=== PATIENT | female | born 1975 | race Caucasian/White ===

== ENCOUNTER 2017-04-02 13:50 | Emergency (ER) | payer MEDICARE, MEDICAID ==
[~2017-04-02] VITALS: Ht 162.6 cm; Wt 89.8 kg
[~2017-04-02 13:50] MED LIST: ABILIFY20 MG; AMOXICILLIN 50500 MG PO; ASPIR-LOW81 MG PO; BUSPAR 10MG TAB10 MG PO; CEFDINIR300 MG PO; CEFTIN250 MG PO; DILANTIN 100MG100 MG PO; IRON TABLETS325 MG PO; KETOROLAC 10MG10 MG PO; MACROBID 100MG100 M1 PO; MACROBID 100MG100 MG PO; MIRALAX17 GM/DOSE PO; MOTRIN 400MG.400 MG PO; Mobic7.5 MG PO; NIFEDIPINE 10MG10 MG OR; PAIN RELIEVER PO; PHENERGAN 25MG.25 M1 PO; PRENATAL PLUS1 TA1 PO; PROTONIX 40MG T40 MG PO; PYRIDIUM 200MG200 MG PO; TEGRETOL 100MG100 MG PO; TYLENOL ES500 M1 PO; VISTARIL25 MG PO; ZYVOX600 MG PO
[2017-04-02 14:17] LABS: HEMOGLOBIN 13.1 g/dL (12.2-16.2); LYMPH # 2.6 K/mm3 (0.7-4.5); LYMPH % 40.7 % (10-50.0)
[2017-04-02 14:28] LABS: URINE BILIRUBIN - DIPSTICK NEGATIVE (NEG); URINE BLOOD NEGATIVE (NEG)
[2017-04-02 14:31] LABS: URINE SQUAMOUS CELLS OCC #/hpf (0-5)
--- NOTE | 2017-04-02 14:53 | Emergency Room Report ---
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 N Clinical Suspician of Infection? N Mental Status: 1 - Regular (Normal Baseline) Sepsis Risk:Low Sepsis Risk Have you (or family members/close friends) recently traveled outside the [place]? N If Yes, where/when: Have you had exposure to infectious disease within the past month? TB? Other? Specify: Comment The patient complains of RIGHT flank pain for 8 days. She has had chills and a temperature of 100 degrees. No vomiting. She saw her primary care provider who did a urinalysis which she says was "clear" but they put her on an antibiotic" to try and clean out my kidneys". It has not helped the pain. She is taking Tylenol without relief. ALLERGIES Coded Allergies: bee pollen (Mild, 04/02/17) codeine (Mild, 04/02/17) honey (Mild, 04/02/17) hydromorphone (From DILAUDID) (Mild, 04/02/17) tetracycline (Mild, 04/02/17) Home Medications Reported Medications Buspirone Hcl (Buspar 10MG) 10 MG PO DAILY Carbamazepine (Tegretol 100MG Tablet) 100 MG PO BID Aspirin (Aspir-Low) 81 MG PO DAILY KETOROLAC TROMETHAMINE (Ketorolac 10MG) 10 MG PO PRN PRN MIGRAINES Hydroxyzine Pamoate (Vistaril) 25 MG PO TIDPRN Pantoprazole Sodium (Protonix 40MG TAB) 40 MG PO DAILY Polyethylene Glycol 3350 (Miralax) 17 GM PO DAILY History Medical History General Angina: Yes [place]: No Hypertension? No Hyperlipidemia? No CHF? No COPD? No Asthma? Yes Hernia? No CVA? No Seizures? Yes Diabetes? No End Stage Renal Disease? No UTI? Yes Stones? Yes GB Disease: Yes Nephritic Syndrome? No Asplenia? No Hepatitis? No Sickle Cell Disease? No Cataracts? No Glaucoma? No MRSA? No TB? No Cancer? 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 Musculoskeletal back pain Physical Exam Vital Signs Vital Signs Date Time Temp Pulse Resp B/P Pulse O2 O2 Flow FiO2 Ox Delivery Rate 04/02 1607 98.3 71 16 91/47 100 04/02 1533 98.3 71 16 91/47 100 04/02 1522 16 04/02 1357 98.3 71 18 100 General Appearance no apparent distress Eye Exam - bilateral eye normal exam, bilateral eye PERRL, bilateral eye EOMI Ear, Nose, Throat hearing grossly normal, normal ENT inspection Neck normal inspection, non-tender, supple, full range of motion Respiratory Status Yes: trachea midline, chest symmetrical. No: respiratory distress. Lung Sounds bilateral: normal breath sounds, lungs clear. 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 Yes Ilya was queried for this patient? Yes Comment [id number] rxs. last rx clonazepam on 02/12/17. Results/Orders Laboratory Tests 04/02/17 1405: Sodium 139, Potassium 3.5, Chloride 104, Carbon Dioxide 27, BUN 12, Creatinine 0.9, Estimated Creat Clear 118, Estimated GFR (MDRD) 69, Glucose 132 H, Calcium 8.8, Total Bilirubin 0.6, AST 13 L, ALT 30, Alkaline Phosphatase 65, Total Protein 7.3, Albumin 4.0, Globulin 3.3 H, Albumin/Globulin Ratio 1.2, WBC 6.3, RBC 4.05 L, Hgb 13.1, Hct 38.3, MCV 94.5, RDW 12.5, Plt Count 190, MPV 8.3, Gran % 52.7, Gran # 3.3, Lymphocytes % 40.7, Monocytes % 4.2, Eosinophils % 1.9, Basophils % 0.4, Lymphocytes # 2.6, Monocytes # 0.3, Eosinophils # 0.1, Basophils # 0.0, PUBS MCHC 34.2, MCH 32.3 H, Urine Color YELLOW, Urine Appearance CLEAR, Urine pH 7.0, Ur Specific [place] 1.020, Urine Protein NEGATIVE, Urine Ketones NEGATIVE, Urine Blood NEGATIVE, Urine Nitrate NEGATIVE, Urine Bilirubin NEGATIVE, Urine Urobilinogen 0.2, Ur Leukocyte Esterase TRACE H , Urine WBC 3-5, Ur Squamous Epith Cells OCC, Urine Bacteria 3+, Urine Glucose NEGATIVE Current Medication Orders Sig/Misty Start time Last Medication Dose Route Stop Time Status Admin Ondansetron HCl 0 .STK-MED ONE 04/02 1521 DC .ROUTE Ketorolac 0 .STK-MED ONE 04/02 1520 DC Tromethamine .ROUTE Ketorolac 30 MG ONCE ONE 04/02 1515 DC 04/02 Tromethamine IV 04/02 1516 1522 Ondansetron HCl 4 MG ONCE ONE 04/02 1515 DC 04/02 IV 04/02 1516 1521 Sodium Chloride 10 ML PRN PRN 04/02 1400 DCD IV 04/03 1400 Orders Procedure Date/time Status DIET-NOTHING BY MOUTH 04/02 D Active CULTURE, URINE 04/[address] ABD/PELVIS REQ 04/02 1400 Complete IV SALINE LOCK 04/02 1400 Active URINALYSIS/COMPLETE 04/02 1400 Complete URINE 04/02 1400 Complete CBC WITH AUTO DIFF 04/02 1400 Complete CHEM 12 PROFILE 04/02 1400 Complete XRAY/CT/US XRAY/CT/US CT abdomen, pelvis Comment CT scan interpreted by radiologist: LEFT nephrolithiasis. No obstructing calculi. Thickening of RIGHT colon. Departure Departure Disposition DC Home or Self Care(routine) Clinical Impression Primary Impression: Colitis Secondary Impressions: Right flank pain Condition STABLE Referrals DUSTIN HONG (Family) Patient Instructions DI for Colitis, DI for Flank Pain Additional Instructions Stop taking Macrobid. Start Cipro. Additional instructions for ABDOMINAL PAIN: See your physician as soon as possible for further evaluation. Return immediately if worsening abdominal pain, vomiting, shortness of breath, fever, vomiting of blood or abdominal distention. Prescriptions Current Visit Scripts Ciprofloxacin HCl (Cipro 500MG TAB) 500 MG PO BID #20 TAB HYDROCODONE/ACETAMINOPHEN ([place] 5-325 Tablet) 1 TAB PO Q6HP PRN pain #8 TAB ED Critical Care Critical Care No at [id number]
--- NOTE | 2017-04-02 14:53 | Emergency Room Report ---
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 N Clinical Suspician of Infection? N Mental Status: 1 - Regular (Normal Baseline) Sepsis Risk:Low Sepsis Risk Have you (or family members/close friends) recently traveled outside the [place]? N If Yes, where/when: Have you had exposure to infectious disease within the past month? TB? Other? Specify: Comment The patient complains of RIGHT flank pain for 8 days. She has had chills and a temperature of 100 degrees. No vomiting. She saw her primary care provider who did a urinalysis which she says was "clear" but they put her on an antibiotic" to try and clean out my kidneys". It has not helped the pain. She is taking Tylenol without relief. ALLERGIES Coded Allergies: bee pollen (Mild, 04/02/17) codeine (Mild, 04/02/17) honey (Mild, 04/02/17) hydromorphone (From DILAUDID) (Mild, 04/02/17) tetracycline (Mild, 04/02/17) Home Medications Reported Medications Buspirone Hcl (Buspar 10MG) 10 MG PO DAILY Carbamazepine (Tegretol 100MG Tablet) 100 MG PO BID Aspirin (Aspir-Low) 81 MG PO DAILY KETOROLAC TROMETHAMINE (Ketorolac 10MG) 10 MG PO PRN PRN MIGRAINES Hydroxyzine Pamoate (Vistaril) 25 MG PO TIDPRN Pantoprazole Sodium (Protonix 40MG TAB) 40 MG PO DAILY Polyethylene Glycol 3350 (Miralax) 17 GM PO DAILY History Medical History General Angina: Yes [place]: No Hypertension? No Hyperlipidemia? No CHF? No COPD? No Asthma? Yes Hernia? No CVA? No Seizures? Yes Diabetes? No End Stage Renal Disease? No UTI? Yes Stones? Yes GB Disease: Yes Nephritic Syndrome? No Asplenia? No Hepatitis? No Sickle Cell Disease? No Cataracts? No Glaucoma? No MRSA? No TB? No Cancer? 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 Musculoskeletal back pain Physical Exam Vital Signs Vital Signs Date Time Temp Pulse Resp B/P Pulse O2 O2 Flow FiO2 Ox Delivery Rate 04/02 1607 98.3 71 16 91/47 100 04/02 1533 98.3 71 16 91/47 100 04/02 1522 16 04/02 1357 98.3 71 18 100 General Appearance no apparent distress Eye Exam - bilateral eye normal exam, bilateral eye PERRL, bilateral eye EOMI Ear, Nose, Throat hearing grossly normal, normal ENT inspection Neck normal inspection, non-tender, supple, full range of motion Respiratory Status Yes: trachea midline, chest symmetrical. No: respiratory distress. Lung Sounds bilateral: normal breath sounds, lungs clear. 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 Yes Ilya was queried for this patient? Yes Comment [id number] rxs. last rx clonazepam on 02/12/17. Results/Orders Laboratory Tests 04/02/17 1405: Sodium 139, Potassium 3.5, Chloride 104, Carbon Dioxide 27, BUN 12, Creatinine 0.9, Estimated Creat Clear 118, Estimated GFR (MDRD) 69, Glucose 132 H, Calcium 8.8, Total Bilirubin 0.6, AST 13 L, ALT 30, Alkaline Phosphatase 65, Total Protein 7.3, Albumin 4.0, Globulin 3.3 H, Albumin/Globulin Ratio 1.2, WBC 6.3, RBC 4.05 L, Hgb 13.1, Hct 38.3, MCV 94.5, RDW 12.5, Plt Count 190, MPV 8.3, Gran % 52.7, Gran # 3.3, Lymphocytes % 40.7, Monocytes % 4.2, Eosinophils % 1.9, Basophils % 0.4, Lymphocytes # 2.6, Monocytes # 0.3, Eosinophils # 0.1, Basophils # 0.0, PUBS MCHC 34.2, MCH 32.3 H, Urine Color YELLOW, Urine Appearance CLEAR, Urine pH 7.0, Ur Specific [place] 1.020, Urine Protein NEGATIVE, Urine Ketones NEGATIVE, Urine Blood NEGATIVE, Urine Nitrate NEGATIVE, Urine Bilirubin NEGATIVE, Urine Urobilinogen 0.2, Ur Leukocyte Esterase TRACE H , Urine WBC 3-5, Ur Squamous Epith Cells OCC, Urine Bacteria 3+, Urine Glucose NEGATIVE Current Medication Orders Sig/Misty Start time Last Medication Dose Route Stop Time Status Admin Ondansetron HCl 0 .STK-MED ONE 04/02 1521 DC .ROUTE Ketorolac 0 .STK-MED ONE 04/02 1520 DC Tromethamine .ROUTE Ketorolac 30 MG ONCE ONE 04/02 1515 DC 04/02 Tromethamine IV 04/02 1516 1522 Ondansetron HCl 4 MG ONCE ONE 04/02 1515 DC 04/02 IV 04/02 1516 1521 Sodium Chloride 10 ML PRN PRN 04/02 1400 DCD IV 04/03 1400 Orders Procedure Date/time Status DIET-NOTHING BY MOUTH 04/02 D Active CULTURE, URINE 04/[address] ABD/PELVIS REQ 04/02 1400 Complete IV SALINE LOCK 04/02 1400 Active URINALYSIS/COMPLETE 04/02 1400 Complete URINE 04/02 1400 Complete CBC WITH AUTO DIFF 04/02 1400 Complete CHEM 12 PROFILE 04/02 1400 Complete XRAY/CT/US XRAY/CT/US CT abdomen, pelvis Comment CT scan interpreted by radiologist: LEFT nephrolithiasis. No obstructing calculi. Thickening of RIGHT colon. Departure Departure Disposition DC Home or Self Care(routine) Clinical Impression Primary Impression: Colitis Secondary Impressions: Right flank pain Condition STABLE Referrals DUSTIN HONG (Family) Patient Instructions DI for Colitis, DI for Flank Pain Additional Instructions Stop taking Macrobid. Start Cipro. Additional instructions for ABDOMINAL PAIN: See your physician as soon as possible for further evaluation. Return immediately if worsening abdominal pain, vomiting, shortness of breath, fever, vomiting of blood or abdominal distention. Prescriptions Current Visit Scripts Ciprofloxacin HCl (Cipro 500MG TAB) 500 MG PO BID #20 TAB HYDROCODONE/ACETAMINOPHEN ([place] 5-325 Tablet) 1 TAB PO Q6HP PRN pain #8 TAB ED Critical Care Critical Care No at [id number]
--- NOTE | 2017-04-02 15:38 | RADIOLOGY REPORT PS360 ---
CT ABD PELVIS W/O CONTRAST CLINICAL INDICATION: Right flank pain RT FLANK PAIN ORDERING PHYSICIAN: Kj Mendoza MD PATIENT AGE: 41 years COMPARISON: 06/02/2012 TECHNIQUE: Axial images obtained with sagittal and coronal reformats. PROCEDURE: Oral Contrast: None IV Contrast: None . FINDINGS: Lung bases are clear. There has been a prior cholecystectomy. No focal liver lesion is evident. Spleen, adrenal glands, pancreas, has an unremarkable unenhanced CT appearance. Punctate 3 mm calculus is present in the lower pole the left kidney. No obstructing renal or ureteral calculi are evident. There is some mild generalized motion artifact of the abdomen which does somewhat decrease findings detail. No evidence of appendicitis. There is mild thickening of the ascending colon and cecum which may be due to nondistention versus colitis. No intestinal obstruction or free air. Stomach is fluid filled. Bilateral tubal occlusion devices are present. No pelvic mass apparent. Minimal amount fluid is present in the pelvis. No acute bony anomalies. IMPRESSION: 1. No obstructing renal or ureteral calculi. Unremarkable appendix 2. Nonobstructing left nephrolithiasis. 3. Thickening of the cecum and ascending colon which could be due to nondistention or colitis.
[2017-04-02] MEDS ORDERED: CIPRO 500MG TA500 MG PO (16:04)
[2017-04-02] MEDS ORDERED: NORCO 325 MG-51 TAB PO (16:04)
[2017-04-02 16:07] VITALS: BP 91/47
== END 2017-04-02 16:13 | disposition home or self-care (01) ==
LOC: ER 13:50
PROVIDERS: Emergency Medicine
DX: K52.9 Noninfective gastroenteritis and colitis, unspecified (principal); F17.210 Nicotine dependence, cigarettes, uncomplicated; J45.909 Unspecified asthma, uncomplicated; Z79.82 Long term (current) use of aspirin; Z79.899 Other long term (current) drug therapy
CPT/HCPCS: J2405